=== PATIENT | male | born 1980 | race Caucasian/White ===

== ENCOUNTER 2016-05-22 16:10 | Emergency (ER) | payer SELFPAY ==
[~2016-05-22] VITALS: Ht 175.3 cm; Wt 79.5 kg
[~2016-05-22 16:10] MED LIST: NAPR500 PO
[2016-05-22 16:13] VITALS: BP 173/116; PULSE 104; RESP 14; TEMP 98.4; O2SAT 97
[2016-05-22] MEDS ORDERED: HYDR5SYP10 PO ×2 (18:19→20:03)
[2016-05-22] MEDS ORDERED: ZITHTAB PO (18:19)
--- NOTE | 2016-05-22 18:20 | PD ---
HPI Chief Complaint: Cold / Flu Symptoms Time Seen by Provider: 18:18 Travel History International Travel<30 days: No Contact w/Intl Traveler<30days: No Traveled to known affect area: No History of Present Illness HPI Otherwise healthy 36-year-old man, presents with 7-10 days of cough cold symptoms, worsening chest congestion, delirium today, getting confusional driving, and feeling poorly. Blood pressures elevated is been taking antihistamines. States she otherwise had feeling generally well and healthy. No history of lung disease. No other complaints. History Past Medical History Medical History: Denies Significant Hx Social History Alcohol Use: No Tobacco Use: No Allergies-Medications (Allergen,Severity, Reaction): Coded Allergies: Flexeril (Verified Adverse Reaction, Severe, NAUSEA, 05/22/16) Reported Meds & Prescriptions Reported Meds & Active Scripts Active Naprosyn (Naproxen) 500 Mg Tab 500 Mg PO Q12HR PRN Review of Systems Except as stated in HPI: all other systems reviewed are Neg Physical Exam Narrative GENERAL: Well-appearing 36 year-old woman, no acute distress. SKIN: Warm and dry. HEAD: Atraumatic. Normocephalic. EYES: Pupils equal and round. No scleral icterus. No injection or drainage. ENT: No nasal bleeding or discharge. Mucous membranes pink and moist. NECK: Trachea midline. No JVD. CARDIOVASCULAR: Regular rate and rhythm. No murmur appreciated. RESPIRATORY: No accessory muscle use. Clear to auscultation. Breath sounds equal bilaterally. GASTROINTESTINAL: Abdomen soft, non-tender, nondistended. Hepatic and splenic margins not palpable. MUSCULOSKELETAL: No obvious deformities. No clubbing. No cyanosis. No edema. NEUROLOGICAL: Awake and alert. No obvious cranial nerve deficits. Motor grossly within normal limits. Normal speech. PSYCHIATRIC: Appropriate mood and affect; insight and judgment normal. Data Data Last Documented VS Vital Signs Date Time Temp Pulse Resp B/P Pulse Ox O2 Delivery O2 Flow Rate FiO2 05/22/16 18:08 16 98 Room Air 05/22/16 16:13 98.4 104 173/116 MDM Medical Decision Making Medical Screen Exam Complete: Yes Emergency Medical Condition: Yes Differential Diagnosis Bronchitis, pneumonia, other Narrative Course Medical decision making 28-year-old male with acute bronchitis. Looks well. Evidence of pneumonia. Recommend supportive treatment. Diagnosis Primary Impression: Acute bronchitis Qualified Code: J20.9 - Acute bronchitis, unspecified organism Additional Instructions: Take antibiotics as prescribed. Follow-up with your primary doctor. Likely well in the next 3-5 days. Return to the emergency department for any new or worsening symptoms. Med/Other Pt SpecificInfo: Prescription(s) given Scripts Hydrocodone-Homatropine Liq 5-1.5 Mg/5 Ml Syrp5 Ml PO Q6H PRN (COUGH) #120 ML Prov:Ronald Root MD 05/22/16 Azithromycin (Zithromax Z-Enmanuel)250 Mg [id number] Mg PO DIRECTED #1 DSPK 500 MG (2 tabs) day 1, then 1 tab days 2-5. Prov:Ronald Root MD 05/22/16 Disposition: 01 DISCHARGE HOME Condition: Stable Ronald Root MD May 22, 2016 18:20
--- NOTE | 2016-05-22 19:42 | PD ---
Physical Exam Time Seen by Provider: 19:42 Data Data Last Documented VS Vital Signs Date Time Temp Pulse Resp B/P Pulse Ox O2 Delivery O2 Flow Rate FiO2 05/22/16 18:08 16 98 Room Air 05/22/16 16:13 98.4 104 173/116 [facility] Medical Record Reviewed: Yes Supervised Visit with KEVIN: No Narrative Course Patient returns with prescription that has not been signed. Prescription will be reprinted, signed, and provided to the patient. Diagnosis Primary Impression: Acute bronchitis Qualified Code: J20.9 - Acute bronchitis, unspecified organism Patient Instructions: General Instructions, Acute Bronchitis (ED) Departure Forms: Tests/Procedures Additional Instruction: Take antibiotics as prescribed. Follow-up with your primary doctor. Likely well in the next 3-5 days. Return to the emergency department for any new or worsening symptoms. Scripts Hydrocodone-Homatropine Liq 5-1.5 Mg/5 Ml Syrp5 Ml PO Q6H PRN (COUGH) #120 ML Prov:Ronald Root MD 05/22/16 Azithromycin (Zithromax Z-Enmanuel)250 Mg [id number] Mg PO DIRECTED #1 DSPK 500 MG (2 tabs) day 1, then 1 tab days 2-5. Prov:Ronald Root MD 05/22/16 Disposition: 01 DISCHARGE HOME Condition: Stable MorrisseyJacqueline CHUYITA May 22, 2016 19:42
== END 2016-05-22 18:49 | disposition home or self-care (01) ==
LOC: NETRI 16:10
DX: J20.9 Acute bronchitis, unspecified (principal); R41.0 Disorientation, unspecified
CPT/HCPCS: 99283

== ENCOUNTER 2017-07-06 02:32 | Emergency (ER) | payer SELFPAY ==
[~2017-07-06] VITALS: Ht 175.3 cm; Wt 122.5 kg
[~2017-07-06 02:32] MED LIST changes: +HYDR5SYP10 PO; +ZITHTAB PO
[2017-07-06 02:57] VITALS: BP 152/106; PULSE 80; RESP 20; TEMP 98.3; O2SAT 98
[2017-07-06] MEDS ORDERED: VENTAER INH (03:06)
--- NOTE | 2017-07-06 03:47 | RADRPT ---
EXAM DATE/TIME: 07/06/2017 03:28 [place] COMPARISON: No previous studies available for comparison. INDICATIONS : Left lateral lower rib pain from coughing. MEDICAL HISTORY : None. SURGICAL HISTORY : None. ENCOUNTER: Initial ACUITY: 1 day PAIN SCORE: 8/10 LOCATION: Left lower ribs FINDINGS: Multiple views of the left ribs were performed. There is no evidence of displaced fracture. No dest ructive lesions or areas of periosteal thickening are seen. Expiratory view of the chest is negative for pneumothorax. The mediastinal structures are midline. CONCLUSION: No perceptible rib fracture. No pneumothorax or other acute cardiopulmonary disease. Adalberto Agarwal MD on July 06, 2017 at 3:45 Board Certified Radiologist. This report was verified electronically.
[2017-07-06] MEDS ORDERED: TRAM50 PO (05:40)
--- NOTE | 2017-07-06 05:40 | PD ---
HPI . Left rib pain Chief Complaint: Pain: Acute or Chronic Time Seen by Provider: 02:55 Travel History International Travel<30 days: No Contact w/Intl Traveler<30days: No Traveled to known affect area: No History of Present Illness HPI 37-year-old male with history of bronchitis with frequent coughing, no acute left sided lateral lower chest wall pain during coughing episode. Patient is concerned he may have fractured a rib. Patient is also concerned he may have pneumonia that has been recurrent over the past 6-8 weeks. Patient denies any fever chills sweats, denies any significant production of cough. Denies any night sweats or weight loss. Patient has no leg swelling or leg pain, denies any recent sedentary or Confining travel. PFSH Past Medical History Narrative Medical Past medical history reviewed Hx Anticoagulant Therapy: No Anxiety: Yes Cardiovascular Problems: No Chemotherapy: No Cerebrovascular Accident: No Diabetes: No Diminished Hearing: No Respiratory: Yes (chronic bronchitis) Immunizations Current: Yes Influenza Vaccination: No Past Surgical History Oral Surgery: Yes (WISDOM TEETH REMOVED) Tonsillectomy: Yes Social History Alcohol Use: No Tobacco Use: No Substance Use: No Allergies-Medications (Allergen,Severity, Reaction): Coded Allergies: cyclobenzaprine (Unverified Adverse Reaction, Severe, NAUSEA, 07/06/17) Reported Meds & Prescriptions Reported Meds & Active Scripts Active Reported Ventolin Hfa 18 GM Inh (Albuterol Sulfate) 90 Mcg/Act Aer 2 Puff INH Q4-6H PRN Narrative Medication Allergies and medications reviewed Review of Systems Except as stated in HPI: all other systems reviewed are Neg General / Constitutional: No: Fever Eyes: No: Visual changes HENT: No: Headaches Cardiovascular: Positive: Chest Pain or Discomfort, No: Palpitations, Irregular Rhythm, Diaphoresis, Syncope, Dyspnea on exertion, Varicosities, Edema , Cyanosis, Varicosities, Phlebitis, Claudication Respiratory: Positive: Cough, Shortness of Breath, Wheezing, No: Sneezing, Orthopnea, Hemoptysis, Stridor, Night Sweats, Pleuritic Pain Gastrointestinal: No: Abdominal Pain Genitourinary: No: Dysuria Musculoskeletal: No: Pain Skin: No Rash Neurologic: No: Weakness Psychiatric: No: Depression Endocrine: No: Polydipsia Hematologic/Lymphatic: No: Easy Bruising Physical Exam Narrative GENERAL: Awake and alert, oriented 3, no acute distress. Vital signs afebrile normal and stable SKIN: Warm and dry. Color is normal no diaphoresis cyanosis or pallor HEAD: Atraumatic. Normocephalic. EYES: Pupils equal and round. No scleral icterus. No injection or drainage. ENT: No nasal bleeding or discharge. Mucous membranes pink and moist. NECK: Trachea midline. No JVD. Supple nontender full range of motion CARDIOVASCULAR: Regular rate and rhythm. S1-S2 no murmurs rubs gallops RESPIRATORY: No accessory muscle use. Clear to auscultation. Breath sounds equal bilaterally. Chest wall tender left lower lateral, no crepitus no obvious swelling or lesion. Equal bilateral excursions. Mild splinting GASTROINTESTINAL: Abdomen soft, non-tender, nondistended. Hepatic and splenic margins not palpable. MUSCULOSKELETAL: Extremities without clubbing, cyanosis, or edema. No obvious deformities. NEUROLOGICAL: Awake and alert. No obvious cranial nerve deficits. Motor grossly within normal limits. Five out of 5 muscle strength in the arms and legs. Normal speech. PSYCHIATRIC: Appropriate mood and affect; insight and judgment normal. Data Data Last Documented VS Vital Signs Date Time Temp Pulse Resp B/P (MAP) Pulse Ox O2 Delivery O2 Flow Rate FiO2 07/06/17 03:01 81 19 07/06/17 02:57 98.3 152/106 (121) 98 Orders Orders Ribs, Uni (W/Exp Cxr-Min 3vw) (07/06/17 ) Ed Discharge Order (07/06/17 05:28) Ketorolac Inj (Toradol Inj) (07/06/17 05:45) Tramadol (Ultram) (07/06/17 05:45) MDM Medical Decision Making Medical Screen Exam Complete: Yes Emergency Medical Condition: Yes Medical Record Reviewed: Yes Differential Diagnosis Rib fracture, intercostal muscle strain versus tear, pneumothorax Narrative Course X-ray negative for infiltrate or pneumothorax. Left rib series no fracture seen. Patient treated with anti-inflammatory/pain medications. Incentive spirometry encouraged Diagnosis Primary Impression: Chest wall muscle strain Qualified Codes: S29.011A - Strain of muscle and tendon of front wall of thorax, initial encounter Patient Instructions: Chest Wall Pain (ED), General Instructions Additional Instructions: Pain medications as prescribed as needed. Incentive spirometry as discussed ( deep breath frequently to prevent pneumonia). Continue medications as prescribed by her doctor. Follow-up with your doctor. Return promptly for worsening Scripts Tramadol (Ultram) 50 Mg Tab 50 MG PO Q8H Y for PAIN, #20 TAB 0 Refills Prov: Gilbert Torres MD 07/06/17 Disposition: 01 DISCHARGE HOME Condition: Stable Gilbert Torres MD Jul 06, 2017 05:40
[2017-07-06] MEDS ORDERED: traMADol HCL 50 MG TAB PO ONE (05:45)
[2017-07-06] MEDS ORDERED: KETOROLAC TROMETHAMINE 30 MG/ML (IVP) VIAL IV PUSH ONE (05:45)
== END 2017-07-06 06:15 | disposition home or self-care (01) ==
LOC: NEPE 02:32
DX: S29.011A Strain of muscle and tendon of front wall of thorax, initial encounter (principal); X58.XXXA Exposure to other specified factors, initial encounter; J42 Unspecified chronic bronchitis; F41.9 Anxiety disorder, unspecified
CPT/HCPCS: 71101; 96374; 99284; J1885